=== PATIENT | male | born 1950 | race Caucasian/White ===

== ENCOUNTER 2018-03-20 22:39 | Emergency (ER) | payer OTHER, MEDICARE ==
--- NOTE | 2018-03-20 23:39 | EDPHY ---
H & P Stated Complaint: VERTIGO Time Seen by Provider: 03/20/18 22:53 HPI/ROS: Chief Complaint: Vertigo HPI: 67-year-old male had an episode of vertigo approximately 1 hr ago. Patient states that he ate some [place] food tonight. He had the sudden wave of extreme nausea and room spinning. He went to the bathroom and vomited several times in the pedis stomach. He called EMS. On EMS arrival the patient was feeling improved. He currently says that his symptoms have resolved. Denies any nausea. No chest pain or shortness of breath. Does have a history of sciatic back pain is complaining of some sciatic is right-sided which is unchanged for the last 2 weeks. He has been undergoing physical therapy. He has an appoint with an orthopedist next week. No new numbness or weakness. EMS did give him 100 mcg of fentanyl IV. He is currently without complaint. ROS: 10 systems were reviewed and were negative except those elements noted in the HPI. PMH: Hypertension, type 2 diabetes, sciatic back pain Social History: No smoking, no alcohol, no recreational drug use Family History: non-contributory Physical Exam: Gen: Awake, Alert, No Distress HEENT: Nose: no rhinorrhea Eyes: PERRLA, EOMI Mouth: Moist mucosa Neck: Supple, no JVD Chest: nontender, lungs clear to auscultation Heart: S1, S2 normal, no murmur Abd: Soft, non-tender, no guarding Back: no CVA tenderness, no midline tenderness Ext: no edema, non-tender Skin: no rash Neuro: CN II-XII intact, Sensation grossly intact, Strength 5/5 in bilateral upper and lower extremities, normal plantar and dorsiflexion. 2+ deep tendon reflexes. Sensations intact in all dermatomes - Personal History Current Tetanus Diphtheria and Acellular Pertussis (TDAP): Yes - Medical/Surgical History Hx Asthma: No Hx Chronic Respiratory Disease: No Hx Diabetes: Yes Hx Cardiac Disease: No Hx Renal Disease: No Hx Cirrhosis: No Hx Alcoholism: No Hx HIV/AIDS: No Hx Splenectomy or Spleen Trauma: No Other PMH: HTN, DMII, SCIATICA, CHOLECYSTECTOMY - Social History Smoking Status: Never smoked Constitutional: Initial Vital Signs Temperature (C) 36.3 C 03/20/18 22:39 Heart Rate 53 L 03/20/18 22:39 Respiratory Rate 18 03/20/18 22:39 Blood Pressure 147/72 H 03/20/18 22:39 O2 Sat (%) 98 03/20/18 22:39 O2 Delivery Mode Room Air Allergies/Adverse Reactions: No Known Allergies Allergy (Unverified 03/20/18 22:48) Home Medications: Medication Instructions Recorded Amlodipine Besylate 03/20/18 Aspirin 03/20/18 Atenolol 03/20/18 Atorvastatin Calcium 03/20/18 Famotidine 03/20/18 Lisinopril 03/20/18 Metformin HCl 03/20/18 Omeprazole 03/20/18 oxyCODONE CR 03/20/18 Medical Decision Making ED Course/Re-evaluation: 60-year-old male with an episode of dizziness and vomiting after eating [place] food. His symptoms have resolved. He is neurologically intact. He has ambulated unassisted in the emergency department. He is otherwise well- appearing. Plan will be to discharge with follow-up with primary care physician. Departure - Departure Disposition: Home, Routine, Self-Care Clinical Impression: Nausea & vomiting, Sciatica Condition: Good Instructions: Acute Nausea and Vomiting (ED) Additional Instructions: Follow up with primary care physician in 2-3 days for any concerns. Return emergency depart for worsening vertigo,, vomiting, chest pain, shortness of breath, numbness, weakness, or any other concerns. Referrals: Sonya Fernandez MD [Primary Care Provider] - As per Instructions
[2018-03-20 23:46] VITALS: BP 140/74
== END 2018-03-20 23:47 | disposition home or self-care (01) ==
LOC: EDUNIT#
DX: R11.2 Nausea with vomiting, unspecified (principal); M54.31 Sciatica, right side; E11.9 Type 2 diabetes mellitus without complications; I10 Essential (primary) hypertension